=== PATIENT | male | born 1985 | race Caucasian/White ===

== ENCOUNTER 2024-06-29 12:23 | Emergency (ER) | payer OTHER, BC, SELFPAY ==
--- NOTE | 2024-06-29 12:38 | XR_ITS ---
WS: [id number] Right hand, 3 views, 06/29/2024 Clinical Data: injury Comparison: None. Findings: There is minimal bony injury to the ungual tuft of the distal phalanx of the right second finger. The dressing obscures minimal detail. No dislocations are seen. The remainder of the hand i s not remarkable. XR/XR hand RT min 3V* [id number] Impression: Minimal bony injury to the ungual tuft of distal phalanx of the right second fi nger.
[2024-06-29 12:47] VITALS: BP 151/100; PULSE 86; RESP 18; TEMP 36.7; O2SAT 95; BMI 30.5
[2024-06-29] MEDS: tetanus-dipt-pertussis 0.5 mL SDV IM (13:30)
--- NOTE | 2024-06-29 13:31 | ED_ITS ---
HPI - Extremity Problem General: Chief complaint: Extremity Injury, Upper Stated complaint: right hand finbger injury Time Seen by Provider: 06/29/24 12:58 Source: patient Mode of arrival: ambulatory Limitations: no limitations History of Present Illness: Patient is a 39-year-old male who presents to the emergency department after injuring right index finger at work. Patient states he got smashed between 2 large pieces of equipment, reports that his finger is mangled and he has had to apply direct pressure since. Initially went to [facility], sent him over due to bleeding uncontrolled. No distal neurovascular changes, states the pain is minor at this time 08/29. He is reporting there is nailbed involvement. Tetanus not up-to-date. This is Worker's Comp. issue. MD Complaint: extremity pain Onset (ago): minute(s) Pain Consistency: constant Location: right and upper extremity (Index finger) Associated symptoms: Deny chest pain, fever(s) or rash Related Data Previous Rx's Medication Instructions Recorded sulfamethoxazole 800 1 tab PO BID 7 days #14 tabs 06/29/24 mg-trimethoprim 160 mg tablet (Bactrim DS) Allergies Allergy/AdvReac Type Severity Reaction Status Date / Time No Known Allergies Allergy Verified 06/20/22 17:10 Review of Systems General: Reports: 10 or more systems reviewed and unremarkable except in HPI and below Const: Denies: fever(s) or chills Card: Denies: chest pain Resp: Denies: dyspnea GI: Denies: abdominal pain, nausea, vomiting or diarrhea Musc: Reports: extremity pain (Right index finger); Denies: joint pain Skin/Breast: Reports: new lesions ( Mangled right finger); Denies: rash Neuro: Denies: headache(s), numbness in extremities, weakness in extremities or sensory changes Physical Exam Const: COMMON NORMALS: no acute distress, average body habitus, patient oriented x3, no limitations, healthy appearing, alert and well nourished HENMT: COMMON NORMALS: normocephalic and atraumatic HEAD & SCALP: normocephalic and atraumatic Neck/C-Spine: COMMON NORMALS: full ROM, no lymphadenopathy, supple and no meningeal signs Resp: COMMON NORMALS: normal respiratory effort, No use of accessory muscles and clear to auscultation bilaterally AUSCULTATION: clear to auscultation bilaterally Cardio: COMMON NORMALS: regular rate and regular rhythm RATE: regular rate RHYTHM: regular rhythm Extremity: COMMON NORMALS: full ROM NARRATIVE EXTREMITY EXAM: See skin exam. Distal neurovascular exam unremarkable. Neuro: COMMON NORMALS: patient oriented x3, moves all extremities, no focal motor deficits and no sensory deficits noted SENSORIUM/ORIENTATION: Yes alert MENINGEAL SIGNS: Yes no meningeal signs Skin: COMMON NORMALS: turgor normal NARRATIVE SKIN EXAM: Profuse bleeding at the tip of the right index finger upon removal of bandage. Difficult to visualize extensive lacerations or injuries. Appears to be injury to the nailbed, potentially even avulsion of the nail. The injury does not extend past the DIP joint. No concern for tendon involvement. GENERAL SKIN EXAM: turgor normal Course Vital Signs: Vital signs: Vital Signs Temperature 98.1 F 06/29/24 12:47 Pulse Rate 105 H 06/29/24 15:29 Respiratory Rate 18 06/29/24 12:47 Blood Pressure 133/90 06/29/24 15:29 Pulse Oximetry 92 06/29/24 15:29 Oxygen Delivery Me thod Room Air 06/29/24 12:47 MDM - Extremity (Nontraumatic) Medical Decision Making Patient had an injury at work, Worker's Comp. situation. Examination revealed continuous bleeding, mangled finger and upon cleaning fingernail bed was still intact but there is extensive laceration to the distal right pointer finger. X- ray showing signs of a tuft fracture. Difficult to get bleeding to stop, sutures were placed but there was still continued bleeding. Applied a pressure dressing with TXA, rechecked 30 minutes later there was no evidence of bleeding, removing the bandage did show that there was still a mild amount of bleeding. Silver nitrate applied next to stop bleeding, and a second pressure dressing with TXA was placed. Patient started on antibiotics and distal neurovascular status was intact. Tetanus was updated. I believe with appropriate pressure dressing for extended amount of time we will stop the small capillary bleed, I informed the patient to have bandage removed with primary care and/or at urgent care/ER to make sure bleeding stops upon removal. I discussed this case with Dr. Gorman in the ER who agrees with disposition. Patient comfortable with discharge home and follow-up promptly. He understood return precautions such as returning with any continued bleeding or other complication. Discussed the importance for immobilization, will be placed in appropriate bandage/splint for this and be provided work note. Lab Data Radiology Impressions Hand X-Ray 06/29/24 12:38 Impression: Minimal bony injury to the ungual tuft of distal phalanx of the right second finger. All radiology interpretation(s) finalized by discharge Discharge Plan Discharge Patient Disposition: Home Clinical Impression: Closed fracture of tuft of distal phalanx of finger Finger laceration with complication Qualifiers: Encounter type: initial encounter Qualified Code(s): S61.219A - Laceration without foreign body of unspecified finger without damage to nail, initial encounter Condition: Stable Prescriptions: New sulfamethoxazole-trimethoprim [Bactrim DS] 800-160 mg tablet 1 tab PO BID 7 Days Qty: 14 0RF Discharge Orders: Discharge ED (Routine); Ordered 06/29/24 Ordered By: Kris Akbar Patient Instructions: Finger Fracture (ED), Finger Laceration (ED) Activity Restrictions/Additional Instructions: Please take antibiotics as prescribed. Your tetanus was updated today. Sutures out in 5 days. Please keep pressure dressing applied for 12 to 24 hours, upon removal make sure that bleeding has stopped. If there is continued bleeding return to the emergency department. Please see attached patient instructions for further education. Also return with any signs of infection. Stand Alone Forms: Work/School Release Coding Level of Care Code ED Pocket Closer for Chichi Abel
[2024-06-29] MEDS: lidocaine 2% INJ 20 mL INJECTION (13:38)
[2024-06-29] MEDS: tranexamic acid 1,000 mg/10mL SDV 1000 MG IRRIGATION ×2 (14:14→15:15)
[2024-06-29] MEDS: silver nitrate applicator 1 EACH TOPICAL (15:15)
[2024-06-29 15:29] VITALS: BP 133/90; PULSE 105; O2SAT 92
== END 2024-06-29 15:29 | disposition home or self-care (01) ==
PROVIDERS: Emergency Provider Physician Assistant
DX: S61.219A Laceration without foreign body of unspecified finger without damage to nail, initial encounter (principal); W31.89XA Contact with other specified machinery, initial encounter
CPT/HCPCS: 73130; 90471; 90715; 99283

== ENCOUNTER 2024-07-06 09:18 | Day surgery (SDC) | payer OTHER, SELFPAY ==
[2024-07-06] VITALS (16 sets, daily range): BP systolic 106–165; BP diastolic 75–101; PULSE 74–100; RESP 16–20; TEMP 36.5–37.6; O2SAT 93–100; BMI 29.2
--- NOTE | 2024-07-06 09:34 | PC.PHAR ---
patient just finished the round of antibiotics given at first visit last week, took off from chart
--- NOTE | 2024-07-06 09:35 | XR_ITS ---
WS: [id number] XR hand RT min 3V* [id number] REASON FOR EXAM: trauma FINDINGS: Amputation/fracture of the distal most tuft of the distal phalanx of the index finger associated with soft tissue disruption. Unchanged compared to 06/29/2024. No new findings. XR/XR hand RT min 3V* [id number] IMPRESSION: Stable index finger injury as above.
--- NOTE | 2024-07-06 09:58 | ED_ITS ---
HPI - Wound/Laceration 2 General: Chief Complaint: Wound/Laceration Stated Complaint: R finger not looking good Time Seen by Provider: 07/06/24 09:34 History of Present Illness: 39-year-old male presents emergency room a crush injury to his fingertip a week ago. He still has a fair amount of pain he is finished a course of prophylactic Bactrim. He did have a tuft fracture with that as well a lot of the tissue was avulsed the remaining tissue was pulled over and closed as best as could be with a couple of sutures. No purulent drainage he is not had any fever sweats or chills. Associated symptoms: Denies chills or fever(s) Related Data Allergies Allergy/AdvReac Type Severity Reaction Status Date / Time No Known Allergies Allergy Verified 06/20/22 17:10 Review of Systems 2 Const: Denies: fever(s) or chills Card: Denies: chest pain Resp: Denies: dyspnea GI: Denies: abdominal pain : Denies: dysuria, urinary frequency or urinary urgency Musc: Denies: neck pain or back pain Skin/Breast: Denies: rash Physical Exam 2 Const: GENERAL APPEARANCE: cooperative ORIENTATION/CONSCIOUSNESS: Yes awake, Yes oriented to person, Yes oriented to place and Yes oriented to time HENMT: COMMON NORMALS: normocephalic, atraumatic and hearing grossly normal bilaterally HEAD & SCALP: normocephalic and atraumatic Resp: COMMON NORMALS: normal respiratory effort, No retractions, No use of accessory muscles and clear to auscultation bilaterally AUSCULTATION: clear to auscultation bilaterally Cardio: COMMON NORMALS: regular rate, regular rhythm and No murmurs present (Cardio) RATE: regular rate RHYTHM: regular rhythm GI: AUSCULTATION: Yes normoactive bowel sounds PALPATION: No Tenderness to palpation present (GI) and No Guarding due to palpation present (GI) Extremity: OTHER: Examination the right index finger there is an avulsion injury appears to be healing by secondary intent no purulent drainage at this time no localized erythema redness or induration. X-rays did not show significant changes no subcutaneous gas does not appear to have any onset of osteomyelitis. Neuro: SENSORIUM/ORIENTATION: Yes oriented to person, Yes oriented to place and Yes oriented to time Skin: COMMON NORMALS: no rashes or lesions noted GENERAL SKIN EXAM: no rashes or lesions noted Course 2 Vital Signs: Vital signs: Vital Signs Temperature 99.6 F 07/06/24 14:08 Pulse Rate 88 07/06/24 15:16 Respiratory Rate 16 07/06/24 15:16 Blood Pressure 144/81 07/06/24 15:16 Pulse Oximetry 97 07/06/24 15:16 Oxygen Delivery Me thod Room Air 07/06/24 15:16 MDM - Wound/Laceration Medical Decision Making Reviewed x-rays and history with Dr. Thurston. He is going to take the patient to the OR for debridement. Patient placed on observation. Medical Records I reviewed the patient's medical records. Lab Data I reviewed the patient's lab results. 07/06/24 10:03 07/06/24 10:03 Radiology Impressions Hand X-Ray 07/06/24 09:35 IMPRESSION: Stable index finger injury as above. Laboratory Results WBC 2.00 10^3/uL (3.29-11.43) L 07/06/24 10:03 RBC 4.86 10^6/uL (3.85-5.65) 07/06/24 10:03 Hgb 15.40 g/dL (11.27-16.99) 07/06/24 10:03 Hct 45.4 % (37-53) 07/06/24 10:03 MCV 93.4 fl (82-101) 07/06/24 10:03 MCH 31.7 pg (27-33) 07/06/24 10:03 MCHC 33.9 g/dL (30-55) 07/06/24 10:03 RDW 12.9 % (12.1-15.1) 07/06/24 10:03 Plt Count 130 10^3/cmm (157-399) L 07/06/24 10:03 MPV 10.5 fL (7.4-10.4) H 07/06/24 10:03 Neut % (Auto) 72.5 % 07/06/24 10:03 Lymph % (Auto) 12.5 % 07/06/24 10:03 [place] % (Auto) 3.0 % 07/06/24 10:03 Eos % (Auto) 10.0 % 07/06/24 10:03 Baso % (Auto) 0.5 % 07/06/24 10:03 Neut # (Auto) 1.45 10^3/uL (1.8-7.7) L 07/06/24 10:03 Lymph # (Auto) 0.3 10^3/uL (0.8-4.8) L 07/06/24 10:03 [place] # (Auto) 0.1 10^3/uL (0.2-0.9) L 07/06/24 10:03 Eos # (Auto) 0.2 10^3/uL (0.0-0.8) 07/06/24 10:03 Baso # (Auto) 0.0 10^3/uL (0.0-0.1) 07/06/24 10:03 Nucleated RBC % (auto) 0 % 07/06/24 10:03 Nucleated RBCs # 0.0 /100WBC 07/06/24 10:03 Sodium 126 mmol/L (136-145) L 07/06/24 10:03 Potassium 4.1 mmol/L (3.5-5.1) 07/06/24 10:03 Chloride 91 mmol/L (98-107) L 07/06/24 10:03 Carbon Dioxide 19 mmol/L (22-29) L 07/06/24 10:03 Anion Gap 20.1 (5-19) H 07/06/24 10:03 BUN 20 mg/dL (6-20) 07/06/24 10:03 Creatinine 1.3 mg/dL (0.7-1.2) H 07/06/24 10:03 GFR Calculation 61.1 mL/min (90-130) L 07/06/24 10:03 Glucose 109 mg/dL (65-115) 07/06/24 10:03 Calculated Osmolality 265 mOsm/kg (285-295) L 07/06/24 10:03 Calcium 8.3 mg/dL (8.5-10.5) L 07/06/24 10:03 Total Bilirubin 0.3 mg/dL (0.15-1.2) 07/06/24 10:03 AST 134 U/L (0-40) H 07/06/24 10:03 ALT 145 U/L (0-41) H 07/06/24 10:03 Alkaline Phosphatase 136 U/L (40-130) H 07/06/24 10:03 Total Protein 6.4 g/dL (6.6-8.7) L 07/06/24 10:03 Albumin 3.7 g/dL (3.5-5.2) 07/06/24 10:03 Globulin 2.7 g/dL (1.3-4.6) 07/06/24 10:03 All radiology interpretation(s) finalized by discharge Discharge Plan Discharge Patient Disposition: Placed in Observation Clinical Impression: Traumatic amputation of fingertip Condition: Stable Discharge Orders: Discharge Order (Routine); Ordered 07/06/24 Ordered By: Alex Thurston Discharge Diet: Regular Discharge Activity: Limit activity as instructed Coding Level of Care Code ED Pipe Bender for Chichi Abel
[2024-07-06 10:14] LABS: Basophils % 0.5 %; Eosinophils # 0.2 10^3/uL (0.0-0.8); Hematocrit 45.4 % (37-53); Lymphocytes # 0.3 10^3/uL (0.8-4.8); Lymphocytes % 12.5 %; Mean Corpuscular HGB Conc 33.9 g/dL (30-55); Mean Corpuscular Hemoglobin 31.7 pg (27-33); Mean Corpuscular Volume 93.4 fl (82-101); Mean Platelet Volume 10.5 fL (7.4-10.4); Monocytes # 0.1 10^3/uL (0.2-0.9); Neutrophils # 1.45 10^3/uL (1.8-7.7); Neutrophils % 72.5 %; Nucleated Red Blood Cells % 0 %; Platelet Count 130 10^3/cmm (157-399); Red Blood Count 4.86 10^6/uL (3.85-5.65); Red Cell Distribution Width 12.9 % (12.1-15.1)
[2024-07-06] MEDS: morphine 4 mg/mL SDV 1 mL IM (10:20)
[2024-07-06] MEDS: ondansetron 2 mg/ML SDV 2 mL 4 MG IM (10:21)
[2024-07-06 10:36] LABS: Alanine Aminotransferase 145 U/L (0-41); Albumin Level 3.7 g/dL (3.5-5.2); Alkaline Phosphatase 136 U/L (40-130); Anion Gap 20.1 (5-19); Aspartate Amino Transferase 134 U/L (0-40); Blood Urea Nitrogen 20 mg/dL (6-20); Calcium 8.3 mg/dL (8.5-10.5); Carbon Dioxide 19 mmol/L (22-29); Chloride 91 mmol/L (98-107); Creatinine Clr Calc Pharmacy 88.9761; Globulin 2.7 g/dL (1.3-4.6); Glomerular Filtration Rate 61.1 mL/min (90-130); Glucose 109 mg/dL (65-115); Osmolality Calculated 265 mOsm/kg (285-295); Potassium 4.1 mmol/L (3.5-5.1); Sodium 126 mmol/L (136-145); Total Bilirubin 0.3 mg/dL (0.15-1.2); Total Protein 6.4 g/dL (6.6-8.7)
[2024-07-06 10:52] LABS: Slide Review Slide Review Perform
--- NOTE | 2024-07-06 12:28 | P.CONIM_ITS ---
Providers/Reason For Consult 2 Consulting Physician/Specialty*: Alex Thurston DO/orthopedic surgery Reason for Consult*: Right index finger traumatic crush injury with possible infection Requesting Physician: Dr. Garay History of Present Illness History of Present Illness Tony Nelson is a 39 year old male who presents emergency department today for concern for right index finger crush injury to the fingertip consistent with open fingertip injury irrigation debridement a week ago in the emergency department bedside on 06/29/2024. Was brought in by patient and concerned for finger having mucopurulent. Drainage at the fingertip not significantly healing as well as patient feeling . at this point in time denies any fevers. Review of Systems 2 General: Reports: 10 or more systems reviewed and unremarkable except in HPI and below Medications/Allergies Home Medications Medication Instructions Recorded Confirmed Last Taken Type No Known Home Medications 07/06/24 07/06/24 Unknown History Allergies Allergy/AdvReac Type Severity Reaction Status Date / Time No Known Allergies Allergy Verified 06/20/22 17:10 Vitals/I&O/Wt Last Vital Signs Temp 97.8 F 07/06/24 09:24 Pulse 74 07/06/24 12:23 Resp 18 07/06/24 12:23 BP 110/75 07/06/24 12:23 Pulse Ox 99 07/06/24 12:23 O2 Del Method Room Air 07/06/24 12:23 Weight last 48 hrs Weight 210 lb Physical Exam 2 Narrative: Examination of the right hand demonstrates patient has previous suture reapproximating some of the soft tissue of the right index finger patient had a traumatic fingertip amputation through part of the nailbed, the entire nail plate is removed there is some mucopurulent drainage at the distal tip where the sutures to reapproximate patient's laceration. There is no proximal tracking erythema no tenderness over the A1 eris can flex and extend the digit no tenderness in the deep spaces of the hand or tenderness over the carpal tunnel. No proximal tracking lymphangitis. Patient has tenderness palpation at the fingertip that previous crush injury site. Necrotic soft tissue edges noted throughout the tip and subcutaneous fat in this area. Data 07/06/24 10:03 07/06/24 10:03 Xray Ortho: Radiologist's impression: Ordering Provider/Ordering MD: Santy Garay DO Date of Service: 07/06/24 Procedure(s): XR hand RT min 3V* [id number] Accession Number(s): [id number] Report Number: [id number] WS: [id number] XR hand RT min 3V* [id number] REASON FOR EXAM: trauma FINDINGS: Amputation/fracture of the distal most tuft of the distal phalanx of the index finger associated with soft tissue disruption. Unchanged compared to 06/29/2024. No new findings. XR/XR hand RT min 3V* [id number] IMPRESSION: Stable index finger injury as above. A&P Assessment and plan (1) Infection of index finger: (2) Traumatic amputation of fingertip: (3) Finger laceration with complication: Qualifiers: Encounter type: initial encounter Qualified Code(s): S61.219A - Laceration without foreign body of unspecified finger without damage to nail, initial encounter Plan Maintain n.p.o. status X-rays reviewed Labs reviewed Patient is been taken p.o. antibiotic Case discussed with patient as well as with emergency department To the OR today for right index finger irrigation and debridement with possible nailbed repair, possible revision amputation. Patient at this point in time had a traumatic fingertip amputation at work back on 06/29/2024. Patient had received TXA antibiotics tetanus was up-to-date and underwent bedside washout and had sutures placed reapproximating was sent home on Bactrim. States he started not feeling that well just this past Thursday some of this I feel could be secondary to his medications. Reviewing the clinically of his fingertip the tip has some mucopurulent drainage as well as some necrotic subcutaneous the distal fingertip where the previous fingertip amputation was. At this point in time we talked about this in detail worry about this potentially getting worse as he is having some drainage and he is over a week out plan at this point in time would be for a right index finger irrigation and debridement with possible nailbed repair as the entire nail plate is removed and the eponychial fold could potentially be scarring down onto the germinal matrix plan will be to evaluate the nailbed as well to see if any need for repairs and in conjunction with this possibly a revision amputation if necessary if there is exposed bone. Patient and we talked about treatment options in detail as far as continued observation and just Vaseline gauze but given its started to look worse from their clinical impression as well as today having some mucopurulent drainage I feel patient would benefit from a formal OR irrigation and debridement of the right index finger with possible nailbed repair, possible revision amputation. They understand the risk benefits complication alternatives surgery. Risk of surge include but not limited to make a better make it worse injury to nerves vessels or tendons, shorten fingertip, possible further infection, further surgery, nailbed/plate deformity. Understanding risk of surgery elects proceed all questions have been answered at this time. Will proceed to the OR today for stated procedure above. Coding Level of Care Code Acute Code for Chg Fwd Diagnoses Infection of index finger L08.9 Traumatic amputation of fingertip S68.119A Finger laceration with complication S61.219A Encounter type: initial encounter Time Spent (min) 50
[2024-07-06] MEDS: sodium chloride 0.9% 1,000 ML 30 ML IV (12:47)
[2024-07-06] MEDS: acetaminophen 1,000 MG/100 ML PIGGYBACK 400 MG IV (12:51)
[2024-07-06] MEDS: ketorolac 30 mg/mL INJ IVP (12:54)
--- NOTE | 2024-07-06 13:05 | W.PM.OPSUD ---
Surgery/Procedure H&P Update DATE OF PROCEDURE: July 06, 2024 DATE H&P PERFORMED: 07/06/24 H&P UPDATE INFORMATION: I have reviewed H&P completed within last 30 days, I have examined patient prior to procedure and No changes to prior documentation PREOP DIAGNOSIS: Right index finger crush injury with drainage PRIMARY INDICATION FOR PROCEDURE: Right index finger crush injury with drainage PLANNED PROCEDURE: Operation Date: 07/06/24 13:45 Proposed Procedures p Right index finger I&D, possible revision, possible amputation(Right) - Alex Thurston DO
[2024-07-06] MEDS: ceFAZolin 2,000 MG in sodium chloride 0.9% (plus) 50 ML 100 MG IV (13:10)
[2024-07-06] MEDS: ROPivacaine 0.5% SDV 30 mL 25 MG INJECTION (13:50)
[2024-07-06] MEDS: lidocaine 1% 10 ML INJ 5 ML SUBCUT (13:50)
[2024-07-06] MEDS: neomycin-poly-bacitracin oint 28 gm 1 APPLIC TOPICAL (13:56)
--- NOTE | 2024-07-06 14:20 | P.BOP_ITS ---
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[employer] Kitchen(s): None Procedure(s) performed: Right index finger irrigation and debridement (1 cm by half a centimeter by half a centimeter) Right index finger revision amputation Findings of the procedure(s): Patient was found to have mucopurulent drainage and necrotic tissue at the fingertip at the previous closure site this was debrided to viable tissue patient had exposed distal phalanx that the distal tip where the crush injury had degloved the sterile matrix off of the distal phalanx at the distal fourth of the distal phalanx/nail plate this was subsequently then revised amputation flush with the soft tissue envelope and then a simple stitch was to brought up the posterior flap and the rest was plan to heal by secondary intention. Patient was then dressed and taken PACU stable condition. Estimated blood loss: 1 mL Specimen(s) removed: Aerobic and anaerobic cultures taken fingertip drainage Post-operative diagnosis: Right index finger tip amputation with infection
--- NOTE | 2024-07-06 14:25 | P.OP_ITS ---
Operative Report Date of procedure: July 06, 2024 Surgeon: Alex Thurston DO Procedure: Pre-op diagnosis: Right index finger crush injury with drainage Post-op diagnosis: Right index finger tip amputation with infection Procedure done: Right index finger irrigation and debridement (1 cm by half a centimeter by half a centimeter) Right index finger revision amputation Specimens removed/disposition: Cultures of the right index finger taken at the site of crush injury and drainage Surgeon: Alex Thurston DO Anesthesia: MAC and Local Estimated blood loss: 1mL finger tournicot 26mins IV fluids: 200mL Complications: None Findings: See operative report narrative Condition: stable Disposition: same day Brief History: Patient is a pleasant 39-year-old gentleman who sustained a right index finger crush injury to the?fingertip?with nailbed injury and open fracture distal phalanx. Patient originally seen evaluate in the emergency department underwent bedside irrigation debridement on antibiotics, tetanus up-to-date.This was roughly a week ago subsequently they were concerned as there was having some drainage and necrotic appearing tissue at the distal tip and went to the emergency department for evaluation orthopedics was consulted for evaluation and treatment recommendations at this point in time would recommend taking patient to the OR for right index finger irrigation debridement with possible nailbed repair, possible revision amputation. At this point in time we talked about treatment options far as nonoperative and operative invention and through shared decision making patient like to proceed with surgical intervention of right index finger irrigation and debridement and possible nailbed repair with possible revision amputation. Patient understands the ins and outs procedure risk benefits complication alternatives of surgery and through shared decision make elects proceed with surgical invention all questions answered at this time . Procedure: Patient was seen evaluate in the preoperative holding area. Consent was reviewed and signed with patient. Correct digit/extremity was then subsequently marked. Patient was then seen evaluated by anesthesia once cleared for surgery patient was taken back to the operative suite. Patient was kept on hospital gurney and armboard was applied to right upper extremity. Patient underwent anesthesia per the anesthesia apartment once appropriate anesthetized the right upper extremity was then prepped and draped in standard orthopedic fashion. Final timeout performed. Patient received appropriate preoperative antibiotics. Finger turnicot was placed over the right index finger and started the insufflation of finger turnicot. This point in time I then subsequently evaluated right index finger patient's crush injury and open laceration around the finger pulp. The nail plate was subsequently already gone I subsequently lifted up the eponychial fold and the germinal matrix appeared to be intact. There was some violation of the distal 1 5% to 25% of the distal phalanx and the sterile nail matrix. At this point in time I opened up the crush injury laceration at the fingertip near the pulp I subsequently utilized a rongeur as well as sharp scalpel excision to debride all nonviable tissue patient did have some drainage in this area I subsequently cultured this with aerobic and anaerobic cultures and sent for microbiology. At this point in time I debrided all necrotic tissue once again this measured roughly 1 cm x 0.5 cm x 0.25 cm. This was taken of all nonviable tissue at this point time unfortunately patient had complete disruption and exposed bone at the distal phalanx and I subsequently had to utilize a rongeur to perform a revision amputation of the bone flush to the level and squared this off to the level of still viable sterile matrix this now took the bone and receipt recesses slightly to the level of the soft tissue envelope. Unfortunately there was not enough soft tissue envelope for a complete flap repair posteriorly and as result my plan was to have a small stitch to reapproximate the tissues but utilize secondary intention for the most optimal way of healing and maintaining as much nail as possible as I did not see any value in a complete revision amputation at the level of the DIP joint this would allow for patient to maintain as much length of the pulp and this should just regenerate well. At this point in time I then thoroughly irrigated the wound bed with normal saline and then subsequently confirmed satisfactory debridement this point in time once I was satisfied with this and the revision amputation I then subsequently let down the tourniquet to get hemostasis was satisfactory and then I subsequently utilized a chromic suture in a mattress fashion to reapproximate the posterior flap to the anterior flap more particularly on the radial side of the digit this will armature winder helper repair in the contouring and will be removed at 2 weeks. I then dressedWith triple antibiotic ointment over the sterile matrix as well as the exposed soft tissue at the pulp of the finger and then dressed this with a bulky soft dressing of Xeroform 4 x 4's Morgan wrap Luis wrap and Patient was then awake from anesthesia taken PACU in stable condition. Disposition: Patient taken PACU in stable condition recovering well patient tolerated procedure without issue complication will complete postoperative antibiotics, given appropriate discharge instruction as well as pain medication will follow- up in the office in 2 weeks. Patient understands agrees to current plan. Questions answered.
== END 2024-07-06 14:36 | disposition home or self-care (01) ==
LOC: ER 12:48 → OR 12:48
PROVIDERS: Emergency Provider Family Medicine; Visit Provider Student in an Organized Health Care Education/Training Program
PROC: (CPT 26989; principal; 2024-07-06 13:35)
DX: S67.190A Crushing injury of right index finger, initial encounter (principal); X58.XXXA Exposure to other specified factors, initial encounter; L08.9 Local infection of the skin and subcutaneous tissue, unspecified
CPT/HCPCS: 26989; 36415; 73130; 80053; 85025; 87070; 87075; 87205; 96372; J0131; J0690; J1885; J2250; J2270; J2405; J2704; J2795; J3010; J7030

== ENCOUNTER 2024-07-21 08:41 | Outpatient (RCR) | payer OTHER, SELFPAY | END 2024-07-22 23:59 | disposition home or self-care (01) | LOC: SOT 08:41 | PROVIDERS: Visit Provider Physician Assistant | DX: S68.119A Complete traumatic metacarpophalangeal amputation of unspecified finger, initial encounter (principal); L08.9 Local infection of the skin and subcutaneous tissue, unspecified; X58.XXXA Exposure to other specified factors, initial encounter | CPT/HCPCS: 97110; 97165; 97530; L3925 ==

== ENCOUNTER 2024-07-23 06:00 | Outpatient (RCR) | payer OTHER, SELFPAY | END 2024-08-19 23:59 | disposition home or self-care (01) | LOC: SOT 06:00 | PROVIDERS: Visit Provider Physician Assistant | DX: S68.119A Complete traumatic metacarpophalangeal amputation of unspecified finger, initial encounter (principal); L08.9 Local infection of the skin and subcutaneous tissue, unspecified | CPT/HCPCS: 97110; 97530 ==